=== PATIENT | male | born 1965 | race Caucasian/White ===

== ENCOUNTER → 2019-02-12 | Day surgery (SDC) | payer OTHER ==
[~2019-02-12] VITALS: Ht 190.5 cm; Wt 117.9 kg
[2019-02-12 12:52] VITALS: BP 131/81
[2019-02-12 17:00] VITALS: BP 118/72
== END | disposition home or self-care (01) ==
LOC: DS 11:55 → OR 12:30 → DS 12:30
DX: Z45.2 Encounter for adjustment and management of vascular access device (principal); E66.3 Overweight; J90 Pleural effusion, not elsewhere classified; D64.9 Anemia, unspecified; Z86.711 Personal history of pulmonary embolism; Z86.718 Personal history of other venous thrombosis and embolism; Z79.899 Other long term (current) drug therapy; Z68.33 Body mass index [BMI] 33.0-33.9, adult; Z85.038 Personal history of other malignant neoplasm of large intestine
CPT/HCPCS: 76937; A4301; J0690; J1644; J2001; J2250; J3010; J7120